=== PATIENT | male | born 1960 | race Caucasian/White ===

== ENCOUNTER → 2018-07-15 | Outpatient (CLI) | payer BC | END | disposition home or self-care (01) | LOC: C.PAT 07:29 | DX: Z01.818 Encounter for other preprocedural examination (principal); K80.20 Calculus of gallbladder without cholecystitis without obstruction ==

== ENCOUNTER 2018-07-21 05:52 | Day surgery (SDC) | payer BC ==
[2018-07-15 07:41] VITALS: BMI 32.5
[2018-07-21] MEDS ORDERED: ceFAZolin 1 gm in NS 2 GM/200 ML BAG IVPB ONE (07:45)
[2018-07-21] MEDS ORDERED: Iohexol 240 (50 ml) ONE (07:56)
[2018-07-21] MEDS ORDERED: Propofol 10 mg/ml Inj (20 ML) ONE (08:02)
[2018-07-21] MEDS ORDERED: Midazolam 2 MG/2 ML VIAL ONE (08:02)
--- NOTE | 2018-07-21 09:57 | PCM.SURG1 ---
Surgeon's Initial Post Op Note - Surgeon's Notes Surgeon: Dr. Obrien Wood Dowel Machine Operator: Dr. Hodge PGY3 Type of Anesthesia: General Endo Pre-Operative Diagnosis: cholelithiasis Operative Findings: see operative report Post-Operative Diagnosis: same Operation Performed: laparoscopic cholecystectomy with intraoperative cholangiogram Specimen/Specimens Removed: gallbladder Estimated Blood Loss: EBL {In ML}: 50 Blood Products Given: N/A Drains Used: No Drains Date of Surgery/Procedure: 07/21/18 Time of Surgery/Procedure: 09:57
[2018-07-21] MEDS ORDERED: Oxycodone/Acetaminophen 5/325 mg Tab PO PRN (09:59)
[2018-07-21] MEDS ORDERED: Lactated Ringer's 1,000 ML IV SCH (10:15)
[2018-07-21] MEDS: HYDROmorphone 0.5 mg/0.5 ml ISec IVP PRN ×2 (10:28→10:45)
[2018-07-21 13:21] VITALS: BP 118/61; PULSE 74; RESP 18; TEMP 98.1; O2SAT 96
--- NOTE | 2018-07-21 15:05 | OP ---
PROCEDURE DATE: 07/21/2018 PREOPERATIVE DIAGNOSES: Cholecystitis, cholelithiasis. POSTOPERATIVE DIAGNOSES: Cholecystitis, cholelithiasis. PROCEDURE: Laparoscopic cholecystectomy with C-arm cholangiogram. SURGEON: Jose Manuel Obrien Jr., MD GLAZIER STAINED GLASS: Ming Hodge DO TYPE OF ANESTHESIA: Text. ANESTHESIA ADMINISTERED BY: Mariana Briones MD INDICATION: A 58-year-old man found to have gallstones. OPERATIVE FINDINGS: Cholangiogram carried out through the cystic duct showed no evidence of any stones or strictures. There was free flow into the duodenum, visualization of the hepatic radicles. The rest of the intraoperative findings were unremarkable. There were some adhesions on the right hypogastric region but no other abnormality detected. There was a small amount of bleeding from the omentum that was tacked up against the gallbladder, but this was controlled and well clotted prior to terminating the procedure. DESCRIPTION OF PROCEDURE: The patient was given general anesthesia, intravenous antibiotics, and Venodyne boots were applied. A Cody trocar was inserted by a cut-down technique. Two additional 5-mm trocars were placed. The cystic duct and cystic artery view of safety was obtained. The cholangiogram carried out as mentioned above. After this had been done, we removed the gallbladder from the liver bed. There was good hemostasis in the liver bed. We then checked this again and again. We irrigated out most of the fluid that had been left behind. There was a small tiny area that was bleeding from the omentum that had been stuck to the gallbladder at the beginning of the procedure. We did not cauterized this but this stopped bleeding prior to terminating the procedure. We then checked again prior to closure to make sure that there was good hemostasis and that most of the fluid had been removed. I was satisfied with this. We used direct closure on the umbilicus and Steri-Strips and Monocryl sutures. BLOOD LOSS FOR THE PROCEDURE: Less than 50 mL. OPERATION CARRIED OUT: Laparoscopic cholecystectomy with C-arm cholangiogram. Jose Manuel Obrien Jr., MD cc: Velasquez Sheth MD
--- NOTE | 2018-07-21 15:24 | RAD ---
Date of service: 07/21/2018 PROCEDURE: Intraoperative Fluoroscopy. HISTORY: CHOLELITHIASIS FINDINGS: Fluoroscopic assistance was provided. Fluoroscopy time = 12.1 sec. Radiation dose = 0.34511 mGy-cm. Please refer to the operative report from [facility] Draper.
== END 2018-07-21 13:20 | disposition home or self-care (01) ==
LOC: C.SDS 05:52
PROVIDERS: ATTEND Surgery Vascular Surgery
DX: K80.10 Calculus of gallbladder with chronic cholecystitis without obstruction (principal); E11.9 Type 2 diabetes mellitus without complications; I10 Essential (primary) hypertension
CPT/HCPCS: 47563; 74300; 82948; 88304; J0690; J1170; J2175; J2250; J2405; J2704; J3010; J7040; J7120